=== PATIENT | male | born 1935 | race Caucasian/White ===

== ENCOUNTER 2017-02-26 18:54 | Inpatient (IN) | payer OTHER ==
[~2017-02-26] VITALS: Ht 172.7 cm; Wt 109.9 kg
[2017-02-26] MEDS ORDERED: HTN MED (19:12)
[2017-02-26] MEDS ORDERED: COUM1TAB19 PO (19:12)
[2017-02-26] MEDS ORDERED: CHOLESTEROL MED (19:12)
[2017-02-26] MEDS ORDERED: COUM2TAB22 PO (19:12)
[2017-02-26] MEDS ORDERED: ACETAMINOPHEN 325 MG TAB PO ONE (20:00)
--- NOTE | 2017-02-26 20:00 | REPUSA ---
CT of the head Clinical history: trauma. Protocol: Multiple axial CT images obtained with 5 mm slice thickness were obtained through the head without administration of contrast. Findings: The ventricles and sulci are symmetric but prominent in size bilaterally. There are periven tricular areas of low attenuation throughout the deep white matter. There is no evidence of acute hem orrhage or infarct. There is no midline shift, mass effect, or extra-axial fluid collection. The osse ous structures are unremarkable. The visualized paranasal sinuses and mastoid air cells are clear. Th ere is a dense superficial soft tissue contusion in the left frontal region. Impression: No acute hemorrhage or infarct. Findings are consistent with moderate age-related atrophy and chronic small vessel ischemic disease. Superficial soft tissue hematoma in the left frontal jazmyne on.
--- NOTE | 2017-02-26 20:00 | REPUSA ---
CT of the cervical spine Clinical history: Pain. Trauma. Technique: Multiple axial CT images were obtained through the cervical spine without administration o f contrast. Coronal and sagittal 3-D reconstructed images were also obtained. Comparison: None. Findings: The cervical vertebral bodies are in satisfactory positioning and alignment. No fractures or dislocat ions are demonstrated. The odontoid process is intact. Intervertebral disc spaces are narrowed at all levels. There are disc osteophyte complexes and disc bulges at all levels from L3 through S1. There is no evidence of facet subluxation. There is moderate facet arthropathy bilaterally, with sclerosis and overhanging osteophytes. The neural foramen appear grossly patent. The cervical cranial junction is intact. The cervical spinal canal demonstrates normal caliber and contour without evidence of spin al stenosis. The surrounding soft tissues are within normal limits. Impression: 1. No acute fracture or traumatic injury. 2. Moderately severe multilevel degenerative disc disease and spondylosis. Disc osteophyte complexes and disc bulges are seen all levels from L3 through S1. 3. Moderate bilateral facet arthropathy.
[2017-02-26 21:04] LABS: ADD MORPHOLOGY? YES; BASO # 0.1 K/mm3 (0.0-0.2); BASO % 1.4 % (0.0-1.0); EOS # 0.2 K/mm3 (0.0-0.50); EOS % 1.9 % (0.0-3.0); INR 2.05; LARGE UNSTAINED CELL # 0.1 K/mm3 (0.0-0.4); LARGE UNSTAINED CELL % 1.3 % (0.0-4.0); LYMPH # 0.6 K/mm3 (1.5-4.5); LYMPH % 5.7 % (24.0-44.0); MEAN CORPUSCULAR HEMOGLOBIN 30.7 pg (27.0-33.0); MEAN CORPUSCULAR HGB CONC 35.4 g/dl (32.0-36.5); MEAN CORPUSCULAR VOLUME 86.5 fl (80.0-96.0); MONO # 0.8 K/mm3 (0.0-0.8); MONO % 7.6 % (0.0-5.0); NEUTROPHILS # 8.2 K/mm3 (1.8-7.7); NEUTROPHILS % 82.1 % (36.0-66.0); RED CELL DISTRIBUTION WIDTH 12.9 % (11.5-14.5)
[2017-02-26 21:25] LABS: PLATELET COUNT, AUTOMATED 9 k/mm3 (150-450)
[2017-02-26 22:02] LABS: ALBUMIN 3.4 GM/DL (3.2-5.2); ALBUMIN/GLOBULIN RATIO 1.21 (1.00-1.93); ALKALINE PHOSPHATASE 54 U/L (45-117); ALT/SGPT 25 U/L (12-78); ANION GAP 9 MEQ/L (8-16); AST/SGOT 24 U/L (15-37); BILIRUBIN,TOTAL 0.6 MG/DL (0.2-1.0); BLOOD UREA NITROGEN 15 MG/DL (7-18); CALCIUM LEVEL 8.5 MG/DL (8.8-10.2); CARBON DIOXIDE LEVEL 27 MEQ/L (21-32); CHLORIDE LEVEL 106 MEQ/L (98-107); CREATININE FOR GFR 0.72 MG/DL (0.70-1.30); GLOMERULAR FILTRATION RATE > 60.0 (>35); GLUCOSE, FASTING 134 MG/DL (83-110); POTASSIUM SERUM 3.9 MEQ/L (3.5-5.1); SODIUM LEVEL 142 MEQ/L (136-145); TOTAL PROTEIN 6.2 GM/DL (6.4-8.2)
[2017-02-26 22:21] LABS: MEAN CORPUSCULAR HEMOGLOBIN 29.7 pg (27.0-33.0); MEAN CORPUSCULAR HGB CONC 34.4 g/dl (32.0-36.5); MEAN CORPUSCULAR VOLUME 86.4 fl (80.0-96.0); WHITE BLOOD COUNT 11.1 K/mm3 (4.0-10.0)
[2017-02-26 22:24] LABS: PLTBLUE- EDTA FREE CALC 3 K/mm3 (172-450); PLTBLUE- EDTA FREE MACHINE 3 K/mm3 (172-450)
[2017-02-26] MEDS ORDERED: AMLO5TAB2 PO (22:38)
[2017-02-26] MEDS ORDERED: METF500T13 PO (22:38)
[2017-02-26] MEDS ORDERED: ROSU10TA2 PO (22:38)
[2017-02-26] MEDS ORDERED: HYDR25TAB PO (22:38)
[2017-02-26] MEDS ORDERED: VALS1TAB47 PO (22:38)
[2017-02-26 22:39] LABS: BASOPHILS 1 % (0-4); EOSINOPHILS 2 % (0-5)
--- NOTE | 2017-02-26 23:09 | REP ---
Clinical: Trauma. Technique: Internal rotation, external rotation, and Y view of the left shoulder. Findings: Moderate age-related arthritic degenerative changes include cortical irregularity and spurring/osteophyte formation involving the acromioclavicular joint along with subtle blunting to the glenoid rim and irregularity along the humeral head. No acute fracture or dislocation. Subacromial space is within normal limits. No periarticular calcifications. No subcutaneous emphysema or radiodense foreign body. 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 No acute fracture or dislocation appreciated. Signed by Ronny Gandara MD 02/26/2017 11:00 P
--- NOTE | 2017-02-26 23:09 | REP ---
Clinical: Trauma. Technique: AP and lateral views of the left humerus. Findings: Age-related degenerative changes at the shoulder and elbow joint noted. No acute fracture or dislocation. No subcutaneous emphysema or radiodense foreign body. Impression: Age-related degenerative changes. No acute fracture or dislocation. Signed by Ronny Gandara MD 02/26/2017 11:00 P
[2017-02-26] MEDS ORDERED: PHYTONADIONE 5 MG TAB PO ONE (23:30)
[2017-02-26] MEDS ORDERED: ACETAMINOPHEN TAB 650MG DOSE (2X325MG) PO PRN (23:30)
[2017-02-26] MEDS ORDERED: **hydrALAZINE** 10 MG TAB PO SCH (23:30)
[2017-02-26] MEDS ORDERED: DEXTROSE 50% 50 ML SYRINGE IV PRN (23:45)
[2017-02-26] MEDS ORDERED: GLUCAGON FOR INJ 1 MG VIAL (J1610) SC PRN (23:45)
[2017-02-26] MEDS ORDERED: GLUCOSE 4 GM CHEW TABLET PO PRN (23:45)
[2017-02-26 23:55] LABS: REASON FOR REVIEW COMPREHENSIVE REVIEW
[2017-02-27] VITALS (8 sets, daily range): BP systolic 115–161; BP diastolic 56–82; PULSE 72
--- NOTE | 2017-02-27 00:30 | REPUSA ---
CLINICAL HISTORY: Thrombocytopenia. TECHNIQUE: Realtime sonographic images were obtained in multiple projections. COMMENTS: Splenic index 9.1x5x8.7 cm = 395.9. (normal less than 480). The left kidney measures 13.8x7.1x5.7 cm. IMPRESSION: No evidence of splenomegaly. Thank you for your kind referral of this patient.
[2017-02-27] MEDS: PANTOPRAZOLE 20 MG TAB PO SCH ×2 (03:36→08:44)
[2017-02-27] MEDS: predniSONE 50 MG TAB PO SCH ×2 (03:36→08:44)
[2017-02-27] MEDS: predniSONE 10 MG TAB PO SCH ×2 (03:37→08:44)
[2017-02-27] MEDS: VALSARTAN 80 MG TAB (DIOVAN) PO SCH ×2 (03:38→22:01)
[2017-02-27] MEDS: hydroCHLOROthiazide 25 MG TAB PO SCH ×2 (03:39→22:01)
--- NOTE | 2017-02-27 03:42 | HPE ---
DATE OF ADMISSION: 02/26/2017 PRIMARY CARE PROVIDER: Dr. Falcon in [facility]. CHIEF COMPLAINT: Fall. HISTORY OF PRESENT ILLNESS: The patient is an 82-year-old man who is visiting the area for [place] [employer] [place] with his . They have been here for four or 5 days. Their plan was to return home to [place] tomorrow; however, today while the patient was walking into his motel he tripped over the ledge and had a mechanical fall. He denies any prodromal symptoms. No chest pain, shortness of breath, lightheadedness, dizziness. There was no loss of consciousness. He did have head trauma develop, as well as abrasions with his fall, which prompted him to present to the emergency room. In the emergency room, the patient was noted to be coughing up a small amount of blood, mostly clot. He was found to have profuse bleeding from his abrasions on his arms, as well as to have quickly developed a hematoma on his left frontal scalp region. A complete blood count (CBC) was drawn and the patient was found to have thrombocytopenia with a platelet count of 9 and the hospitalist service was called for admission. The patient has not had any recent illnesses. He has not started any new medications within the last several months. He is on anticoagulation Coumadin for atrial fibrillation related to a transient ischemic attack (TIA) he had 7 years ago. He has not been hospitalized recently, received any heparin products recently. He denies any recent bleeding or easy bruising, which is different that it has been for the last 7 years. He denies any bleeding gums. Otherwise, has been in his usual state of health. PAST MEDICAL HISTORY: 1. TIA. 2. Atrial fibrillation on Coumadin. 3. Hypertension. 4. Type 2 diabetes. 5. Dyslipidemia. HOME MEDICATIONS: - metformin 500 mg by mouth twice a day - Coumadin 2 mg twice a week and 3 mg five times a week - amlodipine 5 mg nightly - hydrochlorothiazide 25 mg nightly - rosuvastatin 10 mg nightly - valsartan 150 mg nightly PAST SURGICAL HISTORY: Hernia repair in his right inguinal region greater than 50 years ago. ALLERGIES: No known drug allergies. SOCIAL HISTORY: He smokes five cigars per day for 40 years. He denies any alcohol or illicit drug use. He lives with his . As mentioned above, he is visiting from [facility] and with the plan to return to [place] tomorrow. He is FULL CODE. FAMILY HISTORY: Noncontributory. REVIEW OF SYSTEMS: 10-point completely negative other than history of present illness (HPI). PHYSICAL EXAMINATION: VITAL SIGNS: Temperature 99.4, heart rate 48, respiratory rate 20, blood pressure 180/100, oxygen saturation 95% on room air. GENERAL: He is an obese, disheveled man lying in a stretcher at a 50 degree angle. He does not appear to be in any acute distress. He speaks in complete sentences without any accessory muscle use. HEENT: He has moist mucous membranes. He has a hematoma on the left frontal region above his left eye. He does spit up a small amount of fresh blood while I am examining him. CARDIOVASCULAR EXAM: S1, S2, irregularly irregular. He is not bradycardic at the time of my exam. RESPIRATORY EXAM: Clear. ABDOMINAL EXAM: Grossly obese. EXTREMITIES: He has abrasions on his distal right upper and left upper extremities, which are bandaged and blood soaked. Otherwise, there is no clubbing, cyanosis. He has 1+ edema bilaterally. LABORATORY STUDIES: WBC 10.0, hemoglobin 15, hematocrit 42.2, platelet count 9. No blasts noted or schistocytes on peripheral smear after speaking with cath lab technologist. Chemistry panel: Sodium 142, potassium 3.9, chloride 106, bicarbonate 27, BUN 15, creatinine 0.7. INR is 2.0. The cervical spine CT reveals no acute fracture or traumatic injury. There is moderate to severe multilevel degenerative discs and spondylolisthesis. He also did have a CT scan of the head, which revealed no acute hemorrhage or infarct. The patient did have a humerus and shoulder x-ray read by Dr. Tapia in the emergency room, who did not appreciate any acute fractures. ASSESSMENT AND PLAN: This is an 82-year-old man with thrombocytopenia and mild bleeding. 1. Thrombocytopenia, mild bleeding. His thrombocytopenia is quite curious. He did not have bleeding tendencies prior to this. 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 I did speak with Dr. Ca of [facility] hematology, who agreed and she suggested starting the patient on prednisone 1 mg/kg. I will give him his first dose at this time. I will also start him on a proton pump inhibitor (PPI). Given that there is evidence of some active bleeding, although quite slow and mild, I will give him a unit of fresh frozen plasma (FFP), 5 mg of vitamin K. In addition, will also give him 1 unit of platelets and will recheck his platelets. If his platelets have improved, he could likely be followed up outpatient and be discharged on the prednisone. However, should his platelets fail to improve or continue to worsen or have sudden onset of worsening bleeding, he may be required to be transferred to a higher level of care where hematology services are available at this time. I will check a peripheral smear and LDH, and a splenic ultrasound to assess for any sequestration. The patient did express to me he has a desire to leave the hospital AGAINST MEDICAL ADVICE tomorrow morning and pursue treatment in [place] where he lives. I strongly recommended him against him leaving the hospital against medical advice; however, he is quite adamant that he will. As such, he is admitted to observation status. Patient and family services (PFS) consult has been placed given that he has a lack of insurance. Should he elect to remain here or his condition worsens, recommend contacting our hematology service at 8:30 tomorrow morning for potential inpatient consultation as a new consult. Also if the patient has elected to stay, would attempt to obtain previous blood work From Dr. Falcon in [facility]. I would check also an ethylenediaminetetraacetic acid (EDTA) free platelet count. 2. Hypertension. The patient was hypertensive in the emergency room. He has not received any of his home medications. I will start him on his amlodipine, his hydrochlorothiazide and valsartan, which he normally takes in the evening and will followup. 3. Type 2 diabetes. Will hold his metformin, place him on sliding-scale insulin, and fingersticks. 4. Atrial fibrillation. He was mildly bradycardic. He was not on any rate controlling agents. Simply monitor him for now. We are holding his anticoagulation and reversing his international normalized ratio (INR). He understands the risks associated with this outweigh the benefits in the present situation. All the questions were answered to his satisfaction. 5. Dyslipidemia. Continue with rosuvastatin. 6. Deep venous thrombosis (DVT) prophylaxis. Sequentials and thromboembolism deterrent stockings (TEDS). No pharmacological agents in the setting of bleeding. DISPOSITION: The patient is admitted to progressive care unit (PCU) observation status to Dr. Celestin's service who will continue following the patient at 7 a.m.
[2017-02-27 08:23] LABS: ANION GAP 11 MEQ/L (8-16); BLOOD UREA NITROGEN 19 MG/DL (7-18); CALCIUM LEVEL 8.6 MG/DL (8.8-10.2); CARBON DIOXIDE LEVEL 26 MEQ/L (21-32); CHLORIDE LEVEL 103 MEQ/L (98-107); CREATININE FOR GFR 0.84 MG/DL (0.70-1.30); GLOMERULAR FILTRATION RATE > 60.0 (>35); GLUCOSE, FASTING 226 MG/DL (83-110); POTASSIUM SERUM 3.7 MEQ/L (3.5-5.1); SODIUM LEVEL 140 MEQ/L (136-145)
[2017-02-27 08:29] LABS: MEAN CORPUSCULAR HEMOGLOBIN 30.2 pg (27.0-33.0); MEAN CORPUSCULAR HGB CONC 34.6 g/dl (32.0-36.5); MEAN CORPUSCULAR VOLUME 87.3 fl (80.0-96.0); RED CELL DISTRIBUTION WIDTH 13.4 % (11.5-14.5); WHITE BLOOD COUNT 12.4 K/mm3 (4.0-10.0)
[2017-02-27] MEDS: HumaLOG INSULIN (NovoLOG) PER UNIT SC SCH ×3 (08:45→18:14)
[2017-02-27] MEDS: PERCOCET 5MG/325MG TAB PO PRN ×2 (09:54→15:31)
[2017-02-27 10:06] LABS: INR 1.52
[2017-02-27] MEDS: **hydrALAZINE HCL** 25 MG TAB PO SCH ×2 (12:11→18:00)
[2017-02-27 14:18] LABS: MEAN CORPUSCULAR HEMOGLOBIN 29.4 pg (27.0-33.0); MEAN CORPUSCULAR VOLUME 86.4 fl (80.0-96.0); RED CELL DISTRIBUTION WIDTH 13.1 % (11.5-14.5); WHITE BLOOD COUNT 9.2 K/mm3 (4.0-10.0)
[2017-02-27] MEDS ORDERED: PHYTONADIONE 5 MG TAB PO ONE (14:45)
--- NOTE | 2017-02-27 19:10 | CR ---
DATE OF CONSULTATION: 02/27/2017 REFERRING PHYSICIAN: Dr. 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 HISTORY OF PRESENT ILLNESS: Mr. Angelo is an 82-year-old man with history of anticoagulation for atrial fibrillation since 2009 who is currently admitted after a fall with periorbital hematoma, upper extremity abrasions and ecchymosis on both knees. He was noted to have significant thrombocytopenia with platelet count 9K/MM3 on admission. The rest of his blood picture was normal with a normal WBC count and normal hemoglobin level on admission. Peripheral smear pathology review did not reveal any platelet clumping. He also was noted to have a few myelocytes and metamyelocytes, but this seemed to be after prednisone was started. According to Dr. Fernández, of pathology there were no abnormalities noted on RBC. Mr. Angelo also had an abdominal ultrasound which did not show any splenomegaly. He was started on prednisone at 1 mg per kg last night. His platelet count has gone up to 32K/MM3 this morning, but went down to 26K/MM3 this afternoon. He had a platelet transfusion last night of 1 unit of platelets. He has been given vitamin K as well as fresh frozen plasma to reverse his anticoagulation. PAST MEDICAL HISTORY: Mr. Angelo reports that his past medical history includes a transient ischemic attack (TIA) in 2009, atrial fibrillation on Coumadin, hypertension, diabetes mellitus, dyslipidemia. MEDICATIONS: - metformin - warfarin - amlodipine - hydrochlorothiazide - rosuvastatin - losartan PAST SURGICAL HISTORY: Hernia repair. ALLERGIES: No known drug allergies. FAMILY HISTORY: No history of blood disorders. PHYSICAL EXAMINATION: He was lying comfortably on the bed, not in distress. He was oriented to time, place and person. He had a left periorbital hematoma, which seemed to be healing. No oral mucosal lesion. No palpable cervical nodes. Lungs: Clear air entry. No rales, rhonchi, no wheezing. Heart: S1, S2, irregularly irregular. Abdomen: Soft, nontender, no guarding. Positive bowel sounds. Extremities: His forearms were bandaged, but I could see blood seeping through the bandage. He had ecchymosis on both knees. No calf swelling, no calf tenderness, and no pedal edema. IMPRESSION/PLAN: Mr. 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 I recommend that he continue with prednisone at the current dose and continue monitoring platelets regularly. The patient may be transfused platelets if he continues to have active bleeding. I understand that the patient plans to go back to [place] in the morning. I will be following the patient while he is still in the hospital. Thank you very much for this referral. KATIA
[2017-02-27 20:01] LABS: MEAN CORPUSCULAR HEMOGLOBIN 30.5 pg (27.0-33.0); MEAN CORPUSCULAR HGB CONC 34.9 g/dl (32.0-36.5); MEAN CORPUSCULAR VOLUME 87.1 fl (80.0-96.0); RED CELL DISTRIBUTION WIDTH 13.1 % (11.5-14.5); WHITE BLOOD COUNT 12.2 K/mm3 (4.0-10.0)
[2017-02-27] MEDS ORDERED: HumaLOG INSULIN (NovoLOG) PER UNIT SC SCH (21:00)
[2017-02-27] MEDS ORDERED: ROSUVASTATIN 10 MG TAB (CRESTOR) PO SCH (21:00)
[2017-02-27] MEDS ORDERED: amLODIPine 5 MG TAB PO SCH (21:00)
--- NOTE | 2017-02-27 22:36 | IPNPDOC ---
Subjective Date Seen The patient was seen on 02/27/17. Subjective Chief Complaint/HPI The patient is a 82-year-old male admitted with a reason for visit of Thrombocytopenia. States he is still bleeding from both arms, nose, and clearing up blood clots from post-nasal drip and bloody nose. Denies hematuria, melena, hematochezia. states patient is normally on CPAP machine at home for CPAP, and she will bring in machine from the car. No acute complaints. General: Reports: Normal Appetite, Denies: Chills Constitutional: Denies: Chills, Fever Eyes: Denies: Pain ENT: Reports: Post Nasal Drip (blood from nose draining into throat), Epistaxis , Denies: Dysphagia Skin: Reports: Lesions, Bruising Pulmonary: Reports: Cough (coughing blood clots from nose) Cardiovascular: Denies: Chest Pain, Palpitations, Lt Headedness Gastrointestinal: Denies: Nausea, Vomiting, Abdominal Pain, Diarrhea, Constipation, Melena, Hematochezia Genitourinary: Denies: Hematuria Hematologic: Reports: Bruising, Bleeding Excessively Musculoskeletal: Reports: Shoulder Pain (left shoulder from fall) Neurological: Denies: Numbness, Confusion Psych: Reports: Mood Normal Objective Physical Examination General Exam: Positive: Alert, Cooperative, No Acute Distress Eye Exam: Positive: EOMI ENT Exam: Positive: Other ENT (large bruise on left forehead aboe eyebrow, and left periorbital bruise. ) Neck Exam: Positive: Supple, Negative: Lymphadenopathy Chest Exam: Positive: Clear to auscultation, Normal air movement, Negative: Wheezing Heart Exam: Positive: Rate Normal, Irregular Rhythm, Normal S1, Normal S2 Abdomen Exam: Positive: Normal bowel sounds, Soft, Negative: Tenderness Extremity Exam: Positive: Normal pulses, Negative: Clubbing, Cyanosis, Tenderness Skin Exam: Positive: Nl turgor and temperature, Other skin issue (bloody bandages on bilateral arms. Bruises on bilateral knees. Pt actively coughed up blood clot from post-nasal drip. Blood from left nare as well. ) Neuro Exam: Positive: Normal Speech Psych Exam: Positive: Mental status NL, Mood NL, Oriented x 3 Assessment /Plan Assessment Thrombocytopenia Platelet count on the rise. PT downtrending. Continue steroid. Possible ITP, Heme/Onc consulted. Appreciate their input. Replete platelets, FFP, & Vitamin K. Peripheral smear showed mild leukocytosis with left shift, severe thrombocytopenia, and no blasts Leukocytosis Likely 2/2 steroid use. Monitor. HTN Valsartan, HCTZ, Hydralazine DMT2 A1C 7.2. ISS. AFib Norvasc Dyslipidemia Crestor DVT prophylaxis SCDs and TEDs Plan/VTE VTE Prophylaxis Ordered?: Yes VS, I&O, 24H, Fishbone Vital Signs/I&O Vital Signs Date Time Temp Pulse Resp B/P (MAP) Pulse Ox O2 Delivery O2 Flow Rate FiO2 02/27/17 10:24 18 02/27/17 08:00 96.4 78 161/82 (108) 99 Room Air I&O- Last 24 Hours up to 6 AM 02/27/17 05:59 Intake Total 1200 ml Output Total 200 ml Balance 1000 ml Laboratory Data 24H LABS Laboratory Tests 2 02/26/17 20:35: White Blood Count 10.0, Red Blood Count 4.88, Hemoglobin 15.0, Hematocrit 42.2, Mean Corpuscular Volume 86.5, Mean Corpuscular Hemoglobin 30.7, Mean Corpuscular Hemoglobin Concent 35.4, Red Cell Distribution Width 12.9, Platelet Count 9*L, Neutrophils (%) (Auto) 82.1H, Lymphocytes (%) (Auto) 5.7L, Monocytes (%) (Auto) 7.6H, Eosinophils (%) (Auto) 1.9, Basophils (%) (Auto) 1.4H, Neutrophils # (Auto) 8.2H, Lymphocytes # (Auto) 0.6L, Monocytes # (Auto) 0.8, Eosinophils # (Auto) 0.2, Basophils # (Auto) 0.1, Large Unclassified Cells % 1.3 , Large Unclassified Cells # 0.1, Platelet Estimate MARKED DECREASE, Red Blood Cell Morphology NORMAL, Prothrombin Time 23.8H, Prothromb Time International Ratio 2.05, Activated Partial Thromboplast Time 34.9, D-Dimer, Quantitative 796.7H 02/26/17 21:18: Anion Gap 9, Glomerular Filtration Rate > 60.0, Blood Urea Nitrogen 15, Creatinine 0.72, Sodium Level 142, Potassium Level 3.9, Chloride Level 106, Carbon Dioxide Level 27, Calcium Level 8.5L, Aspartate Amino Transf (AST/SGOT) 24, Alanine Aminotransferase (ALT/SGPT) 25, Lactate Dehydrogenase 275H, Alkaline Phosphatase 54, Total Bilirubin 0.6, Total Protein 6.2L, Albumin 3.4, Albumin/Globulin Ratio 1.21 02/26/17 22:01: Platelet Estimate MARKED DECREASE, Red Blood Cell Morphology NORMAL, Neutrophils 89H, Lymphocytes (Manual) 5L, Monocytes (Manual) 1, Eosinophils ( Manual) 2, Basophils (Manual) 1, Differential Slide Review Report, Differential Pathologist's Review COMPREHENSIVE REVIEW, Atypical Lymphocytes 2, Platelet Count, EDTA Free 3*L, Peripheral Blood Smear Path Consult PERIPHERAL SMEAR 02/27/17 07:56: Anion Gap 11, Glomerular Filtration Rate > 60.0, Blood Urea Nitrogen 19H, Creatinine 0.84, Sodium Level 140, Potassium Level 3.7, Chloride Level 103, Carbon Dioxide Level 26, Calcium Level 8.6L 02/27/17 09:44: Prothrombin Time 18.7H, Prothromb Time International Ratio 1.52, Activated Partial Thromboplast Time 30.3 CBC/BMP Laboratory Tests 02/26/17 20:35 Red Blood Count 4.88, Mean Corpuscular Volume 86.5, Mean Corpuscular Hemoglobin 30.7, Mean Corpuscular Hemoglobin Concent 35.4, Red Cell Distribution Width 12.9 , Neutrophils (%) (Auto) 82.1 H, Lymphocytes (%) (Auto) 5.7 L, Monocytes (%) ( Auto) 7.6 H, Eosinophils (%) (Auto) 1.9, Basophils (%) (Auto) 1.4 H, Neutrophils # (Auto) 8.2 H, Lymphocytes # (Auto) 0.6 L, Monocytes # (Auto) 0.8, Eosinophils # (Auto) 0.2, Basophils # (Auto) 0.1 02/26/17 21:18 Calcium Level 8.5 L, Aspartate Amino Transf (AST/SGOT) 24, Alanine Aminotransferase (ALT/SGPT) 25, Lactate Dehydrogenase 275 H, Alkaline Phosphatase 54, Total Bilirubin 0.6, Total Protein 6.2 L, Albumin 3.4 02/26/17 22:01 02/27/17 07:56 Red Blood Count 4.05 L, Mean Corpuscular Volume 87.3, Mean Corpuscular Hemoglobin 30.2, Mean Corpuscular Hemoglobin Concent 34.6, Red Cell Distribution Width 13.4, Calcium Level 8.6 L GME ATTESTATION GME ATTESTATION My preceptor for this patient encounter was physically present in the building during the encounter and was fully available. As needed, all aspects of the patient interview, examination, medical decision making process, and medical care plan development were reviewed and approved by the preceptor. Preceptor is aware and concurs with the plan as stated in the body of this note and will attest to such by his/her cosignature. JESUS DIALLO DO Feb 27, 2017 11:52
[2017-02-28 04:18] VITALS: BP 107/56
[2017-02-28 05:40] VITALS: BP 107/56
[2017-02-28] MEDS: **hydrALAZINE HCL** 25 MG TAB PO SCH ×2 (05:40)
[2017-02-28 06:07] LABS: MEAN CORPUSCULAR HEMOGLOBIN 30.7 pg (27.0-33.0); MEAN CORPUSCULAR HGB CONC 35.3 g/dl (32.0-36.5); MEAN CORPUSCULAR VOLUME 87.1 fl (80.0-96.0); RED CELL DISTRIBUTION WIDTH 13.3 % (11.5-14.5); WHITE BLOOD COUNT 14.8 K/mm3 (4.0-10.0)
[2017-02-28 06:11] LABS: INR 1.39
[2017-02-28 06:23] LABS: ANION GAP 8 MEQ/L (8-16); BLOOD UREA NITROGEN 25 MG/DL (7-18); CALCIUM LEVEL 8.3 MG/DL (8.8-10.2); CARBON DIOXIDE LEVEL 30 MEQ/L (21-32); CHLORIDE LEVEL 103 MEQ/L (98-107); CREATININE FOR GFR 1.14 MG/DL (0.70-1.30); GLOMERULAR FILTRATION RATE > 60.0 (>35); GLUCOSE, FASTING 197 MG/DL (83-110); POTASSIUM SERUM 3.4 MEQ/L (3.5-5.1); SODIUM LEVEL 141 MEQ/L (136-145)
[2017-02-28 08:00] VITALS: BP 108/59
[2017-02-28] MEDS: HumaLOG INSULIN (NovoLOG) PER UNIT SC SCH (09:37)
[2017-02-28] MEDS: predniSONE 50 MG TAB PO SCH (09:38)
[2017-02-28] MEDS: predniSONE 10 MG TAB PO SCH (09:38)
[2017-02-28] MEDS: PANTOPRAZOLE 20 MG TAB PO SCH (09:39)
--- NOTE | 2017-03-01 05:05 | DSES ---
DATE OF ADMISSION: 02/27/2017 DATE OF DISCHARGE: 02/28/2017 This morning, patient was evaluated and examined. Patient's left upper extremity bleeding has slowed down. Hemoglobin and hematocrit remain stable. However, patient still has a low platelet count. On admission, patient had a platelet of 5. With medical management and also platelet transfusion, patient's platelet count was able to increase to 47 on 02/28/2017. I have discussed the case with Dr. Randolph, phone number [phone], patient's insurance medical doctor from the insurance company, to discuss a safe disposition for the patient. Multiple arrangements were in the process of being set up. Patient also had a physical therapy evaluation; however, patient did not pass the evaluation and patient is at high risk of falls. Patient is determined not to be stable for discharge. Besides the high fall risk, patient also has a high tendency of bleeding. Risks and benefits of continued medical management in the facility is explained to the patient; however, patient is very anxious to go back to [place]. Patient's concerns were relayed to Dr. Randolph, and we were in the process of setting up the direct ambulance transfer from [facility] to a [facility] in [facility]. While we were searching for possibility for this placement, patient and patient's insisted on signing out against medical advice. Risks and benefits were explained to the patient multiple times. However, they demonstrate a capacity to make their own decisions and they verbally stated they understand the risks and benefits; however, they still insist on leaving against medical advice immediately. Later, the patient's decision was relayed to Dr. Randolph, and he understands the whole situation and will also in the process try to contact patient's primary care provider to ensure earlier followup.
--- NOTE | 2017-03-07 22:47 | DS.PDOC ---
Discharge Summary General Date of Admission Feb 27, 2017 at 14:32 Date of Discharge 02/28/17 Attending Physician: GONZÁLEZ MARISCAL DO Specialist/Consultants Involve: JENNIFER SANCHEZ MD, FACP Discharge Summary PROCEDURES PERFORMED DURING STAY: None ADMITTING DIAGNOSES: 1. Idiopathic Thrombocytopenia DISCHARGE DIAGNOSES: 1. Idiopathic Thrombocytopenia COMPLICATIONS/CHIEF COMPLAINT: Thrombocytopenia. HISTORY OF PRESENT ILLNESS: Mr. Angelo presented to the ED with his after he experienced a mechanical fall in his hotel room while visiting [place] from [place]. Pt has hx of TIA and Afib for which he is on Coumadin. He denied all prodrome symptoms, including chest pain, lightheadedness, dizziness, shortness of breath. Denied loss of consciousness, but did hit head with visible left frontal hematoma on scalp and obtained abrasions to shins and arms. Initial CBC showed a platelet count of 9, cell lines were normal, and peripheral smear was unremarkable. Denied recent sick contacts and changes in medications. He was started on Prednisone and transfused 1 unit of FFP and given Vitamin K. HOSPITAL COURSE: Throughout his stay, pt was coughing up blood from postnasal drip of bloody nose. Heme/Onc Dr. Sanchez was consulted. He continued to bleed heavily through all layers of his bandages. With platelet repletion, Vitamin K, and FFP, his platelet count began to rise, the highest being 47 on his last day , when his bleeding also slowed down and H&H were stable. He and his were adamant about leaving against medical advice in order to seek care back in [place] at a local hospital closer to home. It was discussed in detail with pt and through many members of the medical staff that it is critical for his health to continue being treated in the hospital, and risks of leaving AMA include bleeding and . Pt and verbalized understanding and still left AMA. Throughtout pt's stay, case was discussed multiple times for safe disposition with pt's insurance medical doctor, Dr. Randolph. Plan was made for immediate follow up in [place] with PCP, arrangements to be made through Dr. Randolph. Pt failed physical therapy, and was noted to be a high-fall risk for a hemorrhage. Pt understood the risks and signed out AMA. DISCHARGE MEDICATIONS: Please see below. ALLERGIES: Please see below. PHYSICAL EXAMINATION ON DISCHARGE: VITAL SIGNS: Please see below. GENERAL: A&Ox3, resting in bed, HEENT: circular bruises around both eyes, bruise on forehead NECK: supple CARDIOVASCULAR EXAMINATION: irregularly irregular. Normal S1 & S2 RESPIRATORY EXAMINATION: CTAB ABDOMINAL EXAMINATION: obese, nontender, nondistended EXTREMITIES: abrasions still present on lower legs, no clubbing or cyanosis. Bilateral arms still bandaged, no visible blood soaking through. NEUROLOGICAL EXAMINATION: able to move all extremities, no visible sensory deficits PSYCHIATRIC EXAMINATION: A&Ox3, irritable LABORATORY DATA: Please see below. IMAGING: * 02/26/17 shoulder x-ray, humerus x-ray, head CT, cervical spine CT: negative for acute pathology or concerns * 02/26/17 abdominal ultrasound: negative for splenomegaly PROGNOSIS: Fair ACTIVITY: Limited DIET: 2 gm sodium DISPOSITION: 07 Against Medical Advice. DISCHARGE INSTRUCTIONS: 1. Follow up with PCP as early as possible. Dr. Randolph will help coordinate 2. Go to ED if symptoms persist or worsen, and call ambulance if emergency arises during travel back to [place] DISCHARGE CONDITION: NOT stable, high risk of bleeding TIME SPENT ON DISCHARGE: Greater than 45 minutes. Discharge Medications Scheduled Amlodipine Besylate (Amlodipine Besylate) 5 Mg Tab, 5 MG PO QHS, (Reported) Hydrochlorothiazide (Hydrochlorothiazide) 25 Mg Tab, 25 MG PO QHS, (Reported) Metformin Hydrochloride (Metformin HCl) 500 Mg Tab, 500 MG PO BID, (Reported) Rosuvastatin Calcium (Rosuvastatin Calcium) 10 Mg Tab, 10 MG PO QHS, (Reported) Valsartan (Valsartan) 160 Mg Tab, 160 MG PO QHS, (Reported) Warfarin Sod (Coumadin) 2 Mg Tab, 2 MG PO 2XW, (Reported) MONDAY AND FRIDAYS Warfarin Sod (Coumadin) 3 Mg Tab, 3 MG PO 5XW, (Reported) , MON, TH, SAT, SUN Allergies Coded Allergies: No Known Allergies (Unverified , 02/26/17) GME ATTESTATION GME ATTESTATION My preceptor for this patient encounter was physically present in the building during the encounter and was fully available. As needed, all aspects of the patient interview, examination, medical decision making process, and medical care plan development were reviewed and approved by the preceptor. Preceptor is aware and concurs with the plan as stated in the body of this note and will attest to such by his/her cosignature. JESUS DIALLO DO Mar 07, 2017 22:41
== END 2017-02-28 10:52 | disposition left against medical advice (07) | DRG 661 ==
LOC: EDBD 18:54 → M ED 18:54 → M ED INP 23:25 → EDBD 23:25 → M PCU 02-27 00:01 → OBSVTOIN 02-27 14:32
PROVIDERS: ADMIT Internal Medicine; ATTEND Internal Medicine
PROC: 30253R1 (ICD-10-PCS; principal; 2017-02-27)
PROC: 30253K1 (ICD-10-PCS; 2017-02-27)
DX: D69.3 Immune thrombocytopenic purpura (principal); K92.0 Hematemesis; E11.9 Type 2 diabetes mellitus without complications; I48.91 Unspecified atrial fibrillation; I10 Essential (primary) hypertension; E78.5 Hyperlipidemia, unspecified; F17.210 Nicotine dependence, cigarettes, uncomplicated; E66.9 Obesity, unspecified; R04.0 Epistaxis; S00.03XA Contusion of scalp, initial encounter; S51.812A Laceration without foreign body of left forearm, initial encounter; W18.09XA Striking against other object with subsequent fall, initial encounter; S51.811A Laceration without foreign body of right forearm, initial encounter; Y92.59 Other trade areas as the place of occurrence of the external cause; Y99.8 Other external cause status; Z86.73 Personal history of transient ischemic attack (TIA), and cerebral infarction without residual deficits; Z68.34 Body mass index [BMI] 34.0-34.9, adult; Z79.899 Other long term (current) drug therapy; Z79.01 Long term (current) use of anticoagulants; Z79.84 Long term (current) use of oral hypoglycemic drugs